=== PATIENT | male | born 1965 | race Hispanic/Latino ===

== ENCOUNTER 2018-07-12 17:05 | Inpatient (IN) | payer OTHER ==
[2018-07-12 18:50] LABS: BASO # 0.2 K/uL (0.0-0.2); EOS # 0.1 K/uL (0.0-0.7); EOS % 0.4 % (0.0-4.0); HEMOGLOBIN 17.3 g/dL (12.0-18.0); LYMPH # 3.1 K/uL (1.0-4.3); MEAN CELL VOLUME 88.3 fL (80.0-94.0); MEAN CORPUSCULAR HEMOGLOBIN 30.5 pg (27.0-31.0); MEAN CORPUSCULAR HGB CONC 34.5 g/dL (33.0-37.0); MEAN PLATELET VOLUME 9.1 fL (7.2-11.7); MONO # 0.7 K/uL (0.0-0.8); MONO % 4.4 % (0.0-10.0); NEUT # 10.9 K/uL (1.8-7.0); NEUT % 73.2 % (50.0-75.0); NRBC % 0.2 % (0.0-2.0); RBC 5.68 Mil/uL (4.40-5.90); RED CELL DISTRIBUTION WIDTH 13.3 % (11.5-14.5); WHITE BLOOD COUNT 14.9 K/uL (4.8-10.8)
[2018-07-12 19:17] LABS: SQUAMOUS EPITHIAL 1 /hpf (0-5); URINE BILIRUBIN NEGATIVE (NEGATIVE); URINE BLOOD NEGATIVE (NEGATIVE); URINE CLARITY Hazy (Clear); URINE COLOR Amber (YELLOW); URINE GLUCOSE (UA) NORMAL (Normal); URINE HYALINE CAST >20 /lpf (0-2); URINE LEUKOCYTE ESTERASE NEG Leu/uL (Negative); URINE PROTEIN 1+ mg/dL (NEGATIVE)
[2018-07-12 19:20] LABS: ALB/GLOB RATIO 1.2 (1.0-2.1); ALT/SGPT 86 U/L (21-72); AST/SGOT 65 U/L (17-59); BLOOD UREA NITROGEN 10 mg/dL (9-20); CALCIUM 9.7 mg/dl (8.6-10.4); GFR NON-AFRICAN AMERICAN > 60
[2018-07-12 19:33] LABS: BARBITURATES, UR NEGATIVE (NEGATIVE); PHENCYCLIDINE, UR NEGATIVE (NEGATIVE)
--- NOTE | 2018-07-12 19:56 | C.PDOC ---
History Of Present Illness 53 y/o male presents to the ED requesting detox from alcohol and heroin. Patient admits he last used today prior to arrival. Otherwise patient offers no physical complaints at this time. Denies any fever, chills, nausea, or vomiting. Time Seen by Provider: 07/12/18 19:23 Chief Complaint (Nursing): Substance Abuse History Per: Patient History/Exam Limitations: no limitations Onset/Duration Of Symptoms: Days Current Symptoms Are (Timing): Still Present Modifying Factor(s): Alcohol, Other (Heroin) Associated Symptoms: denies: Suicidal Thoughts, Suicidal Plan Involuntary Hold By: None Past Medical History Reviewed: Historical Data, Nursing Documentation, Vital Signs Vital Signs: Last Vital Signs Temp 98.9 F 07/12/18 17:10 Pulse 97 H 07/12/18 17:10 Resp 18 07/12/18 17:10 BP 127/82 07/12/18 17:10 Pulse Ox 98 07/12/18 17:10 - Medical History PMH: Depression Surgical History: No Surg Hx Family History: States: No Known Family Hx - Social History Hx Tobacco Use: Yes Hx Alcohol Use: Yes Hx Substance Use: Yes - Immunization History Hx Tetanus Toxoid Vaccination: No Hx Influenza Vaccination: No Hx Pneumococcal Vaccination: No Review Of Systems Constitutional: Negative for: Fever, Chills Gastrointestinal: Negative for: Nausea, Vomiting Musculoskeletal: Negative for: Other (tremors) Psych: Positive for: Other (substance abuse). Negative for: Suicidal ideation, Withdrawal Physical Exam - Physical Exam Appears: Non-toxic, No Acute Distress Skin: Warm, Dry Head: Normacephalic Eye(s): bilateral: Normal Inspection Oral Mucosa: Moist Neck: Trachea Midline, Supple Chest: Symmetrical Cardiovascular: Rhythm Regular Respiratory: No Rales, No Rhonchi, No Wheezing Gastrointestinal/Abdominal: Soft, No Tenderness, No Distention Extremity: Bilateral: Atraumatic, Normal Color And Temperature, Normal ROM Pulses: Left Dorsalis Pedis: Normal, Right Dorsalis Pedis: Normal Neurological/Psych: Oriented x3 Gait: Steady ED Course And Treatment - Laboratory Results Result Diagrams: 07/12/18 18:46 07/12/18 18:46 O2 Sat by Pulse Oximetry: 98 (RA) Pulse Ox Interpretation: Normal Progress Note: Blood work and urine sent for analysis. plastics factory worker will evaluate patient and discuss detox. Disposition Discussed With : Leo Redmond Comment: accepted the pt on his service and took over the care at 8:07PM Doctor Will See Patient In The: Hospital Counseled Patient/Family Regarding: Studies Performed, Diagnosis - Disposition Disposition: HOSPITALIZED Disposition Time: 19:00 Condition: FAIR Forms: [facility] (Pakistani) - Clinical Impression Clinical Impression: Alcohol abuse, Opioid use disorder - Scribe Statement The provider has reviewed the documentation as recorded by the Elva Vasquez Provider Attestation: All medical record entries made by the Elva were at my direction and personally dictated by me. I have reviewed the chart and agree that the record accurately reflects my personal performance of the history, physical exam, medical decision making, and the department course for this patient. I have also personally directed, reviewed, and agree with the discharge instructions and disposition. Decision To Admit - Pt Status Changed To: Hospital Disposition Of: Inpatient - Admit Certification Admit to Inpatient:: After my assessment, the patient will require hospitalization for at least two midnights. This is because of the severity of symptoms shown, intensity of services needed, and/or the medical risk in this patient being treated as an outpatient. - InPatient: Physician Admission Certification: I certify that this patient requires 2 or more midnights of care for the following reason:: After my assessment, the patient will require hospitalization for at least two midnights. This is because of the severity of symptoms shown, intensity of services needed, and/or the medical risk in this patient being treated as an outpatient. - . Bed Request Type: Detox Admitting Physician: Leo Redmond Patient Diagnosis: Alcohol abuse, Opioid use disorder
[2018-07-12 20:21] LABS: BENZODIAZEPINES, UR POSITIVE (NEGATIVE); OPIATES, UR POSITIVE (NEGATIVE)
--- NOTE | 2018-07-12 20:31 | PCM.BM ---
<Lacy Oliveros - Last Filed: 07/12/18 20:28> Treatment Plan Problems - Problems identified on initial assessmt potiential for autonomic instability related to alcohol withdrawal Date Initiated: 07/12/18 Time Initiated: 20:29 Assessment reference: NA Status: Active potiential for opiate withdrawal Date Initiated: 07/12/18 Time Initiated: 20:30 Assessment reference: NA Status: Active Treatment assets and liabiliti Patient Assests: ADL independent, cognitively intact Patient Liabilities: substance abuse, medical problems - Milieu Protocol Maintain good personal hygiene: daily Encourage regular showers, daily Remind patient to perform daily oral care, daily Assist patient to perform ADL's Maintain personal safety: every shift Educate patient to report safety concerns to staff, every shift Monitor environment for contraband/sharps Medication safety: Monitor for expected outcome, potential side effects: every shift, Assess barriers to learning: every shift, Assess readiness for medication education: every shift <Delia Corona - Last Filed: 07/13/18 14:04> - Diagnosis (1) Opioid use disorder Status: Acute Interventions: 07/13/18 14:04 * Assess 7x/week regarding severity of withdrawal * Educate regarding risks, benefits, side effects and alternatives of medications * Use Motivational Interviewing for abstinence * Use CBT for relapse prevention * Medication management for withdrawal symptoms * Encourage medication assisted treatment *
[2018-07-13] MEDS: Multiple Vitamins Tab PO SCH (09:19)
--- NOTE | 2018-07-13 14:04 | PCM.PSYCH ---
Initial Psychiatric Evaluation - Initial Psychiatric Evaluation Type of Admission: Voluntary Legal Status: Capacity Chief Complaint (in patient's own words): "Heroin" History of Present Illness and Precipitating Events: Patient is a 53-year-old white male, single with 3 children aged 8,17, and 21. He is on disability due to the stroke he had 2 years ago. He lives with his mother in [place]. Patient is here for detox from heroin. Patient states that he has been using 10 bags of heroin and cocaine per day by sniffing and benzodiazepine (Xanax) 2-4 mg per day in the last 3 years. He also admits smoking marijuana about 3x per month and smoking cigarettes 1ppd. He states that he drinks a couple of beers every day. Patient reports that he abused many others in the past as well, but he quit on his own and was clean about 19 years. He relapsed 3 years ago when he was going through a divorce. He reports overdosing about 4-5x in the past. He complains about tremors on his hands and pain in his body. Patient reports that he tried detox for the first time about a month ago in [facility]. He has never been to a rehabilitation before. Patient plans to utilize outpatient programs after leaving the detox. Psych hx: depression (diagnosed 5 years ago). Still very depressed but denies SI/SP. 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 Family hx: brother committed suicide for an unknown reason. Current Medications: Active Medications Generic Name Dose Route Start Last Admin Trade Name Freq PRN Reason Stop Dose Admin Al Hydrox/Mg Hydrox/Simethicone 30 ml 07/13/18 03:29 Maalox 30 Ml PO TID PRN Indigestion / Heartburn Aspirin 81 mg 07/13/18 12:00 07/13/18 12:52 Aspirin Chewable PO 81 mg DAILY COLLEEN Administration Chlordiazepoxide 25 mg 07/13/18 03:30 Librium PO Q4H PRN Alcohol Withdrawal Clonidine HCl 0.1 mg 07/13/18 03:29 Catapres PO Q8 PRN COWS Score More or Equal to 5 Clopidogrel Bisulfate 75 mg 07/13/18 12:00 07/13/18 12:53 Plavix PO 75 mg DAILY COLLEEN Administration Dicyclomine HCl 20 mg 07/13/18 03:32 Bentyl PO Q6 PRN Abdominal cramps Escitalopram Oxalate 10 mg 07/13/18 12:00 07/13/18 12:53 Lexapro PO 10 mg DAILY COLLEEN Administration Folic Acid 1 mg 07/13/18 10:00 07/13/18 09:19 Folic Acid PO 1 mg DAILY COLLEEN Administration Gabapentin 400 mg 07/13/18 10:00 07/13/18 09:19 Neurontin PO 400 mg TID COLLEEN Administration Hydroxyzine HCl 25 mg 07/12/18 21:22 Atarax PO Q8 PRN Anxiety Ibuprofen 400 mg 07/13/18 03:32 Motrin Tab PO Q6 PRN Pain, moderate (4-7) Loperamide HCl 2 mg 07/13/18 03:29 Imodium PO Q8 PRN Diarrhea Methadone HCl 20 mg 07/14/18 10:00 Methadone PO 07/18/18 09:59 Q24H COLLEEN Taper Mirtazapine 15 mg 07/13/18 22:00 Remeron PO HS COLLEEN Multivitamins 1 tab 07/13/18 10:00 07/13/18 09:19 Hexavitamin PO 1 tab DAILY COLLEEN Administration Nicotine 1 patch 07/13/18 10:00 07/13/18 09:48 Nicoderm Cq TD 1 patch DAILY COLLEEN Administration Ondansetron HCl 4 mg 07/13/18 03:29 Zofran Tab PO Q8 PRN Nausea/Vomiting Oxcarbazepine 150 mg 07/13/18 12:00 07/13/18 12:52 Trileptal PO 150 mg BID COLLEEN Administration Rosuvastatin Calcium 10 mg 07/13/18 22:00 Crestor PO HS COLLEEN Thiamine HCl 100 mg 07/13/18 10:00 07/13/18 09:19 Vitamin B1 Tab PO 100 mg DAILY COLLEEN Administration Trazodone HCl 50 mg 07/12/18 21:21 07/12/18 22:58 Desyrel PO 50 mg HS PRN Administration Insomnia Past Psychiatric History - Past Psychiatric History Previous Treatment History: Intensive Outpatient Pertinent Medical Hx (Current Medical&Sleep Prob, Allergies): Allergies Allergy/AdvReac Type Severity Reaction Status Date / Time No Known Allergies Allergy Verified 07/12/18 17:10 Review of Systems - Neurological Neurological: Tremor - Psychiatric Psychiatric: Abnormal Sleep Pattern, Anhedonia, Anxiety, Behavioral Changes, Change in Appetite, Depression, Difficulty Concentrating, Irritability. absent: Hallucinations, Homicidal Ideation, Paranoia, Suicidal Ideation Mental Status Examination - Personal Presentation Personal Presentation: Looks stated age - Affect Affect: Constricted - Motor Activity Motor Activity: Calm - Reliability in Providing Information Reliability in Providing Information: Good - Speech Speech: Organized - Mood Mood: Depressed, Anxious - Formal Thought Process Formal Thought Process: No Impairment - Cognitive Functions Orientation: Person, Place, Situation, Time Sensorium: Alert Attention/Concentration: Attentive Estimate of Intelligence: Average Judgement: Intact, as evidence by: Insight regarding need for hospitalization Memory: Recent intact, as evidence by: Ability to recall events of the day, Remote intact, as evidenced by: Abilit to recall sig. 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 Attend groups and activities Supportive therapy and psychoeducation MA for abstinence CBT for relapse prevention Encourage MAT Refer to rehab or IOP, and self-help groups Teach healthy lifestyle methods, i.e. diet, exercise, meditation Smoking cessation with MA Nicotine patch if needed 34 min Projected ELOS: 5 days Prognosis: good w treatment - Smoking Cessation Smoking Cessation Initiated: Yes
[2018-07-14] MEDS: Multiple Vitamins Tab PO SCH (09:54)
--- NOTE | 2018-07-14 14:27 | PCM.PYCHPN ---
Psychiatric Progress Note - Psychiatric Progress Note Patient seen today, length of contact: 19 min Patient Chief Complaint: "I am not well" Problems Identified/Issues Discussed: The pt is seen, chart reviewed, case discussed with staff. The pt is compliant with medications and reports no side-effects. Symptoms are improving but needs more time to stabilize. He had lots of breakthru sxs and anxiety He couldn't sleep all night and got agitated at the end - He is warned against being disrespectful towards stff. Ativan and seroquel added Support given, psycho-education provided. Medication Change: Yes (meds adjusted) Medical Record Reviewed: Yes Mental Status Examination - Cognitive Function Orientation: Person, Place, Situation, Time Memory: Impaired Attention: Poor Concentration: Poor Association: Loose Fund of Knowledge: Poor - Mood Mood: Depressed, Anxious - Affect Affect: Constricted - Speech Speech: Appropriate - Formal Thought Process Formal Thought Process: No Impairment - Suicidal Ideation Suicidal Ideation: No - Homicidal Ideation Homicidal Ideation: No Goal/Treatment Plan - Goal/Treatment Plan Need for Continued Stay: Discharge may exacerbated symptoms, Severe functional impairment Progress Toward Problem(s) and Goals/Treatment Plan: Taper with Librium and Methadone Gabapentin for augmentation Lexapro for depression Seroquel for insomnia and agitation As needed medications All risks, benefits and alternatives of the meds discussed, and the pt agreed and understood. Attend groups and activities Supportive therapy and psychoeducation HI for abstinence CBT for relapse prevention Encourage MAT Refer to rehab or IOP, and self-help groups Teach healthy lifestyle methods, i.e. diet, exercise, meditation Smoking cessation with HI Nicotine patch if needed
[2018-07-15] MEDS: Multiple Vitamins Tab PO SCH (09:06)
[2018-07-15] MEDS: Aluminum Hydroxide/Magnesium Hydroxide Susp (30 mL) PO PRN (11:33)
--- NOTE | 2018-07-15 18:00 | PCM.PYCHPN ---
Psychiatric Progress Note - Psychiatric Progress Note Patient seen today, length of contact: 15 minutes Patient Chief Complaint: Medications were helping me. I'm feeling better with treatment. Problems Identified/Issues Discussed: Patient seen, chart reviewed, case discussed with the staff. Issues related to illness and treatment were discussed with the patient and staff. Reported compliant with treatment with no adverse affects. Tolerating treatment very well. Patient reported feeling better with the treatment. Still needs more time for stabilization and completion of his detox. Calm and cooperative. Awake, alert and oriented 3. No psychomotor activity, good eye contact, memory intact. Aftercare discussed with the patient. Denied any delusions, auditory or visual hallucinations, suicidal ideations or homicidal ideations at the time of evaluation. Medical Problems: Hypertension Diagnostic Results: Reviewed DSM 5 Symptoms Update: Improving with treatment Medication Change: No Medical Record Reviewed: Yes Mental Status Examination - Cognitive Function Orientation: Person, Place, Situation, Time Memory: Intact Attention: WNL Concentration: WNL Association: WNL Fund of Knowledge: WN Decription of patient's judgement and insights: Good - Mood Mood: Anxious - Affect Affect: Other - Speech Speech: Appropriate - Formal Thought Process Formal Thought Process: No Impairment Psychotic Thoughts and Behaviors: None - Suicidal Ideation Suicidal Ideation: No - Homicidal Ideation Homicidal Ideation: No Goal/Treatment Plan - Goal/Treatment Plan Need for Continued Stay: Remain at risks for inpatient hospitalization, Discharge may exacerbated symptoms, Severe functional impairment Progress Toward Problem(s) and Goals/Treatment Plan: Patient/staff education. Supportive therapy. CBT for relapse prevention. VT for abstinence. Continue treatment as before. Patient wants to go to NA meetings and also wants to attend IOP. Will speak with the social workers to find a program Estimated Date of D/C: 07/17/18 - Smoking Cessation Smoking Cessation Initiated: Yes
[2018-07-16] MEDS: Multiple Vitamins Tab PO SCH (09:12)
[2018-07-16 16:42] VITALS: RESP 18
[2018-07-17] MEDS: Aluminum Hydroxide/Magnesium Hydroxide Susp (30 mL) PO PRN (07:22)
[2018-07-17] MEDS: Multiple Vitamins Tab PO SCH (09:07)
[2018-07-17 10:03] VITALS: BP 110/80; PULSE 83; TEMP 97.6; O2SAT 99
== END 2018-07-17 10:30 | disposition home or self-care (01) | DRG 744 ==
LOC: C.ER 17:05 → C.9E 20:07 → C.7D 20:24
PROC: HZ2ZZZZ Detoxification Services for Substance Abuse Treatment (ICD-10-PCS; principal; 2018-07-12)
PROC: HZ80ZZZ Medication Management for Substance Abuse Treatment, Nicotine Replacement (ICD-10-PCS; 2018-07-12)
PROC: GZ3ZZZZ Medication Management (ICD-10-PCS; 2018-07-12)
PROC: HZ46ZZZ Group Counseling for Substance Abuse Treatment, Psychoeducation (ICD-10-PCS; 2018-07-12)
PROC: GZHZZZZ Group Psychotherapy (ICD-10-PCS; 2018-07-12)
PROC: HZ46ZZZ Group Counseling for Substance Abuse Treatment, Psychoeducation (ICD-10-PCS; 2018-07-12)
PROC: GZ56ZZZ Individual Psychotherapy, Supportive (ICD-10-PCS; 2018-07-12)
DX: F11.23 Opioid dependence with withdrawal (principal); F33.2 Major depressive disorder, recurrent severe without psychotic features; F10.10 Alcohol abuse, uncomplicated; F14.90 Cocaine use, unspecified, uncomplicated; F12.90 Cannabis use, unspecified, uncomplicated; F13.90 Sedative, hypnotic, or anxiolytic use, unspecified, uncomplicated; F17.210 Nicotine dependence, cigarettes, uncomplicated; F41.9 Anxiety disorder, unspecified; G47.00 Insomnia, unspecified; I10 Essential (primary) hypertension; Z86.73 Personal history of transient ischemic attack (TIA), and cerebral infarction without residual deficits

== ENCOUNTER 2018-11-07 19:11 | Inpatient (IN) | payer OTHER ==
[2018-11-07 20:18] LABS: BASO # 0.1 K/uL (0.0-0.2); BASO % 0.9 % (0.0-2.0); EOS # 0.2 K/uL (0.0-0.7); EOS % 1.6 % (0.0-4.0); HEMOGLOBIN 14.5 g/dL (12.0-18.0); LYMPH # 3.3 K/uL (1.0-4.3); LYMPH % 31.3 % (20.0-40.0); MEAN CELL VOLUME 89.8 fL (80.0-94.0); MEAN CORPUSCULAR HEMOGLOBIN 30.4 pg (27.0-31.0); MEAN CORPUSCULAR HGB CONC 33.9 g/dL (33.0-37.0); MEAN PLATELET VOLUME 8.5 fL (7.2-11.7); MONO # 0.6 K/uL (0.0-0.8); MONO % 5.8 % (0.0-10.0); NEUT # 6.4 K/uL (1.8-7.0); NEUT % 60.4 % (50.0-75.0); NRBC % 0.1 % (0.0-2.0); RBC 4.77 Mil/uL (4.40-5.90); RED CELL DISTRIBUTION WIDTH 13.2 % (11.5-14.5); WHITE BLOOD COUNT 10.5 K/uL (4.8-10.8)
[2018-11-07 20:23] LABS: URINE BACTERIA RARE (<OCC); URINE BILIRUBIN NEGATIVE (NEGATIVE); URINE BLOOD NEGATIVE (NEGATIVE); URINE CLARITY Clear (Clear); URINE COLOR Yellow (YELLOW); URINE GLUCOSE (UA) NORMAL (Normal); URINE LEUKOCYTE ESTERASE NEG Leu/uL (Negative); URINE PROTEIN NEGATIVE (NEGATIVE); URINE UROBILINOGEN NORMAL mg/dL (0.2-1.0)
[2018-11-07 20:34] LABS: ALB/GLOB RATIO 1.2 (1.0-2.1); ALBUMIN 4.5 g/dL (3.5-5.0); ALT/SGPT 119 U/L (21-72); AST/SGOT 178 U/L (17-59); BLOOD UREA NITROGEN 13 mg/dL (9-20); CALCIUM 8.8 mg/dl (8.6-10.4); GFR NON-AFRICAN AMERICAN > 60
[2018-11-07 20:49] LABS: BARBITURATES, UR NEGATIVE (NEGATIVE); OPIATES, UR NEGATIVE (NEGATIVE); PHENCYCLIDINE, UR NEGATIVE (NEGATIVE)
--- NOTE | 2018-11-07 21:02 | C.PDOC ---
History Of Present Illness 53 year old male with PMHx of HTN and CVA presents to the ED requesting detox for polysubstance abuse. Patient reports his last use was today RHEOLOGIST. Patient denies SI/HI, hallucinations, other medical complaints. <Dafne Gomes - Last Filed: 11/07/18 22:33> History Per: Patient History/Exam Limitations: intoxication Onset/Duration Of Symptoms: Hrs Current Symptoms Are (Timing): Still Present Suicide/Self Injury Attempted (Context): None Modifying Factor(s): Other Associated Symptoms: denies: Depression, Suicidal Thoughts, Suicidal Plan Recent travel outside of the [place]: No Additional History Per: Patient <Dafne Gomes - Last Filed: 11/07/18 22:33> <Krunal Sheikh - Last Filed: 11/08/18 00:33> Time Seen by Provider: 11/07/18 19:37 Chief Complaint (Nursing): Substance Abuse Past Medical History Reviewed: Historical Data, Nursing Documentation, Vital Signs Vital Signs: Last Vital Signs Temp 97.9 F 11/07/18 19:22 Pulse 86 11/07/18 19:22 Resp 22 11/07/18 19:22 BP 133/87 11/07/18 19:22 Pulse Ox 96 11/07/18 19:22 - Medical History PMH: Anxiety (paranoid), CVA, Depression Denies: Diabetes, Hepatitis, HIV, HTN, Seizures, Sexually Transmitted Disease Other Surgeries: hand surgery 2/2 crush injury - [facility] DETOXIFICATION SERVICES FOR SUBSTANCE ABUSE TREATMENT (07/12/18) GROUP CUSTOMER SERVICES MANAGER FOR SUBSTANCE ABUSE TREATMENT, PSYCHOEDUCATION (07/12/18) GROUP PSYCHOTHERAPY (07/12/18) INDIVIDUAL PSYCHOTHERAPY, SUPPORTIVE (07/12/18) MEDICATION MANAGEMENT (07/12/18) MEDS MGMT FOR SUBSTANCE ABUSE TREATMENT, NICOTINE REPLACE (07/12/18) Family History: States: Unknown Family Hx - Social History Hx Tobacco Use: Yes Hx Alcohol Use: Yes Hx Substance Use: Yes - Immunization History Hx Tetanus Toxoid Vaccination: No Hx Influenza Vaccination: No Hx Pneumococcal Vaccination: No <Dafne Gomes - Last Filed: 11/07/18 22:33> Vital Signs: Last Vital Signs Temp 98.1 F 11/07/18 22:43 Pulse 74 11/07/18 22:43 Resp 20 02/03/19 22:43 BP 128/70 11/07/18 22:43 Pulse Ox 98 11/07/18 22:43 - [facility] DETOXIFICATION SERVICES FOR SUBSTANCE ABUSE TREATMENT (07/12/18) GROUP CUSTOMER SERVICES MANAGER FOR SUBSTANCE ABUSE TREATMENT, PSYCHOEDUCATION (07/12/18) GROUP PSYCHOTHERAPY (07/12/18) INDIVIDUAL PSYCHOTHERAPY, SUPPORTIVE (07/12/18) MEDICATION MANAGEMENT (07/12/18) MEDS MGMT FOR SUBSTANCE ABUSE TREATMENT, NICOTINE REPLACE (07/12/18) <Krunal Sheikh - Last Filed: 11/08/18 00:33> Review Of Systems Constitutional: Negative for: Fever, Chills Cardiovascular: Negative for: Chest Pain, Palpitations Respiratory: Negative for: Cough, Shortness of Breath Gastrointestinal: Negative for: Nausea, Vomiting, Abdominal Pain Psych: Negative for: Depression, Suicidal ideation <Dafne Gomes - Last Filed: 11/07/18 22:33> Physical Exam - Physical Exam Appears: Non-toxic, No Acute Distress Skin: Normal Color, Warm, Dry Head: Atraumatic, Normacephalic Eye(s): bilateral: Normal Inspection Neck: Normal ROM, Supple Chest: Symmetrical Cardiovascular: Rhythm Regular Respiratory: Normal Breath Sounds, No Rales, No Rhonchi, No Wheezing Gastrointestinal/Abdominal: Soft, No Tenderness, No Guarding, No Rebound Extremity: Normal ROM, Other (right hand thumb only secondary to childhood trauma) Neurological/Psych: Oriented x3, Normal Speech, Normal Cognition Gait: Steady <Dafne Gomes - Last Filed: 11/07/18 22:33> ED Course And Treatment - Laboratory Results Result Diagrams: 11/07/18 20:10 11/07/18 20:10 Lab Results: Total Bilirubin 0.7 mg/dL (0.2-1.3) 11/07/18 20:10 AST 178 U/L (17-59) H D 11/07/18 20:10 ALT 119 U/L (21-72) H D 11/07/18 20:10 Alkaline Phosphatase 72 U/L (38-126) 11/07/18 20:10 Total Protein 8.1 g/dL (6.3-8.3) 11/07/18 20:10 Albumin 4.5 g/dL (3.5-5.0) 11/07/18 20:10 Globulin 3.7 gm/dL (2.2-3.9) 11/07/18 20:10 Albumin/Globulin Ratio 1.2 (1.0-2.1) 11/07/18 20:10 Urine Color Yellow (YELLOW) 11/07/18 20:10 Urine Clarity Clear (Clear) 11/07/18 20:10 Urine pH 5.0 (5.0-8.0) 11/07/18 20:10 Ur Specific [place] 1.019 (1.003-1.030) 11/07/18 20:10 Urine Protein Negative mg/dL (NEGATIVE) 11/07/18 20:10 Urine Glucose (UA) Normal mg/dL (Normal) 11/07/18 20:10 Urine Ketones Negative mg/dL (NEGATIVE) 11/07/18 20:10 Urine Blood Negative (NEGATIVE) 11/07/18 20:10 Urine Nitrate Negative (NEGATIVE) 11/07/18 20:10 Urine Bilirubin Negative (NEGATIVE) 11/07/18 20:10 Urine Urobilinogen Normal mg/dL (0.2-1.0) 11/07/18 20:10 Ur Leukocyte Esterase Neg [place]/uL (Negative) 11/07/18 20:10 Urine WBC (Auto) < 1 /hpf (0-5) 11/07/18 20:10 Urine RBC (Auto) 1 /hpf (0-3) 11/07/18 20:10 Urine Bacteria Rare (<OCC) 11/07/18 20:10 O2 Sat by Pulse Oximetry: 96 (ON RA) Pulse Ox Interpretation: Normal <Dafne Gomes - Last Filed: 11/07/18 22:33> - Laboratory Results Result Diagrams: 11/07/18 20:10 11/07/18 20:10 Lab Results: Total Bilirubin 0.7 mg/dL (0.2-1.3) 11/07/18 20:10 AST 178 U/L (17-59) H D 11/07/18 20:10 ALT 119 U/L (21-72) H D 11/07/18 20:10 Alkaline Phosphatase 72 U/L (38-126) 11/07/18 20:10 Total Protein 8.1 g/dL (6.3-8.3) 11/07/18 20:10 Albumin 4.5 g/dL (3.5-5.0) 11/07/18 20:10 Globulin 3.7 gm/dL (2.2-3.9) 11/07/18 20:10 Albumin/Globulin Ratio 1.2 (1.0-2.1) 11/07/18 20:10 Urine Color Yellow (YELLOW) 11/07/18 20:10 Urine Clarity Clear (Clear) 11/07/18 20:10 Urine pH 5.0 (5.0-8.0) 11/07/18 20:10 Ur Specific [place] 1.019 (1.003-1.030) 11/07/18 20:10 Urine Protein Negative mg/dL (NEGATIVE) 11/07/18 20:10 Urine Glucose (UA) Normal mg/dL (Normal) 11/07/18 20:10 Urine Ketones Negative mg/dL (NEGATIVE) 11/07/18 20:10 Urine Blood Negative (NEGATIVE) 11/07/18 20:10 Urine Nitrate Negative (NEGATIVE) 11/07/18 20:10 Urine Bilirubin Negative (NEGATIVE) 11/07/18 20:10 Urine Urobilinogen Normal mg/dL (0.2-1.0) 11/07/18 20:10 Ur Leukocyte Esterase Neg Collette/uL (Negative) 11/07/18 20:10 Urine WBC (Auto) < 1 /hpf (0-5) 11/07/18 20:10 Urine RBC (Auto) 1 /hpf (0-3) 11/07/18 20:10 Urine Bacteria Rare (<OCC) 11/07/18 20:10 <Krunal Sheikh - Last Filed: 11/08/18 00:33> Medical Decision Making Medical Decision Making: labs reviewed; pt with glucose 65, eating sandwich and drinking juice in ed. 2230 pt resting comfortably. pt is medically cleared for detox admission, awaits crisis evaluation. s/o to DR Sheikh for final dispo. <Dafne Gomes - Last Filed: 11/07/18 22:33> Medical Decision Making: signed over, @ 2230, pending Detox adm pt seen and examined, sleeping, easily arousable, covered with a clean sheet 0000: d/w Crisis, pending Detox adm 0030: signed over to anisa CLARK pending Detox Adm <Krunal Sheikh - Last Filed: 11/08/18 00:33> Disposition - Disposition Disposition Time: 22:31 <Dafne Gomes - Last Filed: 11/07/18 22:33> <Krunal Sheikh - Last Filed: 11/08/18 00:33> - Disposition Forms: [employer] (Kenyan) - Clinical Impression Clinical Impression: Polysubstance (including opioids) dependence, daily use - PA / PETS SALESPERSON / Resident Statement / has reviewed & agrees with the documentation as recorded. - Scribe Statement The provider has reviewed the documentation as recorded by the Scribe Alen Keith All medical record entries made by the Scribe were at my direction and personally dictated by me. I have reviewed the chart and agree that the record accurately reflects my personal performance of the history, physical exam, medical decision making, and the department course for this patient. I have also personally directed, reviewed, and agree with the discharge instructions and disposition. <Dafne Gomes - Last Filed: 11/07/18 22:33> Physician Patient Turnover Patient Signed Over To: Genaro Bassett DO Handoff Comments: pending Detox Adm <Krunal Sheikh - Last Filed: 11/08/18 00:33>
[2018-11-07 21:08] LABS: BENZODIAZEPINES, UR POSITIVE (NEGATIVE)
--- NOTE | 2018-11-08 09:31 | PCM.BM ---
<Raeann Quintanilla - Last Filed: 11/08/18 09:29> Treatment Plan Problems - Problems identified on initial assessmt potential for alcohol withdrawal Date Initiated: 11/08/18 Time Initiated: 09:30 Assessment reference: NA Status: Active Problem 2 Date Initiated: 11/08/18 Time Initiated: 09:30 Assessment reference: NA Status: Active Treatment assets and liabiliti Patient Assests: ADL independent, cognitively intact - Milieu Protocol Maintain good personal hygiene: daily Encourage regular showers, daily Remind patient to perform daily oral care, daily Assist patient to perform ADL's Conduct patient checks and document Observation sheet: Q15 minutes Maintain personal safety: every shift Educate patient to report safety concerns to staff, every shift Monitor environment for contraband/sharps Medication safety: Monitor for expected outcome, potential side effects: every shift, Assess barriers to learning: every shift, Assess readiness for medication education: every shift <Delia Corona - Last Filed: 11/08/18 13:44> - Diagnosis (1) Alcohol use disorder, severe, dependence Status: Acute Interventions: 11/08/18 13:44 * Assess 7x/week regarding severity of withdrawal * Educate regarding risks, benefits, side effects and alternatives of medications * Use Motivational Interviewing for abstinence * Use CBT for relapse prevention * Medication management for withdrawal symptoms * Encourage medication assisted treatment * <Michelle Cueto - Last Filed: 11/11/18 13:17> Treatment Plan Problems - Problems identified on initial assessmt potential for alcohol withdrawal Date Initiated: 11/08/18 Time Initiated: 09:30 Assessment reference: NA Status: Active Problem 2 Date Initiated: 11/08/18 Time Initiated: 09:30 Assessment reference: NA Status: Active Family Contact Family involvement: Renee/SO not involved - Goals for Treatment Patient goals for treatment: Complete detox and transition to MAT. Discharge/Continuing Care - Education Needs Education Needs: Patient Medication, Patient Diagnosis/Disease Process, Patient Coping Skills, Patient Anger Management skills, Patient Placement options, Patient Community resources - Discharge Discharge Criteria: No longer exhibiting s/s of withdrawal, Reduction of target symptoms Discharge to:: Home, With Family - Treatment Team Participation Patient/Family/SO Statement: 11/11/18 13:17 "I wanna go back to the [facility]..." Discussed with Family/SO: No Was Patient/Family/SO present at Treatment Team Meeting: Yes
[2018-11-08] MEDS ORDERED: Aluminum Hydroxide/Magnesium Hydroxide Susp (30 mL) PO PRN (09:34)
--- NOTE | 2018-11-08 09:46 | PCM.PSYCH ---
Initial Psychiatric Evaluation - Initial Psychiatric Evaluation Type of Admission: Voluntary Legal Status: Capacity Chief Complaint (in patient's own words): "I had enough, I want to be clean" History of Present Illness and Precipitating Events: Patient is a 53 -year-old, male who is single, unemployed, and living with his mother in [place], [place]. He has 4 children, ages 25, 22, 16, and 8. His 16 and 8 year old kids are under supervision of their mother. He presents for alcohol detox. Patient reports drinking 1 pint of anything, daily. He started drinking when he was 23 years old. With his longest sobriety lasting 18 years that he attributes to being in a strong relationship. Patient does not have a history of DTs or seizures but states that he has a history of 2-3 blackouts in his life. He states that after stopping heroin his alcohol intake increased. Patient is currently on 90 mg of methadone after detox for heroin at [facility] 5 months ago. He states that he gets his methadone from [facility] in [place], [place]. He states that he used to use 6 bags of heroin, intranasally and intravascularly, daily. He first started using heroin when he was 50 years old. Patient does not have a history of heroin overdoses. Patient also reports taking 2 of the 2 mg pills of Xanax, 2-3 times a week. He states that he has been taking pills for a long time. This is his 3rd time in detox. He has been to [facility] in the past and [facility] as well. Patient denies any suicidal or homicidal ideation, hallucinations, and paranoia. Past Psychiatric History: Bipolar, depression, anxiety. No hospitalizations in the past. Family Psych History: none PMHx: Hep. C (does not taking medication for it, in the process of getting it approved by the insurance) Meds: Patient does not remember the name of his psych meds but states that he is compliant with them Current Medications: Active Medications Generic Name Dose Route Start Last Admin Trade Name Freq PRN Reason Stop Dose Admin Al Hydrox/Mg Hydrox/Simethicone 30 ml 11/08/18 09:34 Maalox 30 Ml PO TID PRN Indigestion / Heartburn Clonidine HCl 0.1 mg 11/08/18 09:31 Catapres PO Q4 PRN COWS Score More or Equal to 5 Hydroxyzine HCl 25 mg 02/04/19 09:32 Atarax PO Q4H PRN Anxiety Ibuprofen 600 mg 11/08/18 09:32 Motrin Tab PO Q6H PRN Pain, moderate (4-7) Loperamide HCl 2 mg 11/08/18 09:31 Imodium PO Q8 PRN Diarrhea Methadone HCl 10 mg 11/08/18 10:00 Methadone PO DAILY [facility] Methadone HCl 80 mg 11/08/18 10:00 Methadose PO DAILY [facility] Ondansetron HCl 4 mg 11/08/18 09:31 Zofran Tab PO Q8 PRN Nausea/Vomiting Pneumococcal Polyvalent Vaccine 0.5 ml 11/10/18 10:45 Pneumovax 23 Vaccine SC 11/10/18 10:46 .ONCE ONE Trazodone HCl 50 mg 11/08/18 22:00 Desyrel PO HS COLLEEN Past Psychiatric History - Past Psychiatric History Previous Treatment History: Intensive Outpatient Pertinent Medical Hx (Current Medical&Sleep Prob, Allergies): Allergies Allergy/AdvReac Type Severity Reaction Status Date / Time No Known Allergies Allergy Verified 11/07/18 19:27 No Known Home Med 11/07/18 Review of Systems - Psychiatric Psychiatric: Abnormal Sleep Pattern, Anxiety, Behavioral Changes, Confusion, Depression, Difficulty Concentrating, Irritability. absent: Hallucinations, Homicidal Ideation, Suicidal Ideation, Visual Hallucinations Mental Status Examination - Personal Presentation Personal Presentation: Looks stated age - Affect Affect: Constricted - Motor Activity Motor Activity: Psychomotor Agitation - Reliability in Providing Information Reliability in Providing Information: Good - Speech Speech: Disorganized - Mood Mood: Depressed, Anxious - Formal Thought Process Formal Thought Process: No Impairment - Obsessions/Compulsions Obsessions: No Compulsions: No - Cognitive Functions Orientation: Person, Place, Situation, Time Sensorium: Alert Attention/Concentration: Easily distracted Abstract Thinking: [place] Estimate of Intelligence: Average Judgement: Intact, as evidence by: Insight regarding need for hospitalization Memory: Recent intact, as evidence by: Ability to recall events of the day, Remote intact, as evidenced by: Abilit to recall sig. life events - Risk Risk: Withdrawal, Diminished functioning - Strength & Assets Inventory Strength & Assets Inventory: Family support, Cooperative - Limitations Limitations: Other DSM 5 DX - DSM 5 DSM 5 Diagnosis: Alcohol Withdrawal Opioid use disorder- severe, on maintenance Alcohol use disorder- severe Sedative, hypnotic or anxiolytic use disorder, severe KENDALL Depressive d/o - unspecified - Recommended/Plan of Treatment Treatment Recommendations and Plan of Treatment: Taper with Ativan Continue Methadone regimen Gabapentin for augmentation if needed As needed medications All risks, benefits and alternatives of the meds discussed, and the pt agreed and understood. Attend groups and activities Supportive therapy and psychoeducation WI for abstinence CBT for relapse prevention Encourage MAT Refer to rehab or IOP, and self-help groups Teach healthy lifestyle methods, i.e. diet, exercise, meditation Smoking cessation with WI Nicotine patch if needed 34 min Projected ELOS: 4-5 days Prognosis: good with treatment
[2018-11-08] MEDS: Methadone 40 mg Tab PO SCH (10:20)
[2018-11-08] MEDS: Multiple Vitamins Tab PO SCH (10:22)
[2018-11-09] MEDS: Multiple Vitamins Tab PO SCH (09:39)
[2018-11-09] MEDS: Methadone 40 mg Tab PO SCH (09:40)
--- NOTE | 2018-11-09 11:35 | PCM.PYCHPN ---
Psychiatric Progress Note - Psychiatric Progress Note Patient seen today, length of contact: 16 min Patient Chief Complaint: "I apologize for my behavior" Problems Identified/Issues Discussed: The pt is seen, chart reviewed, case discussed with staff. The pt is compliant with medications and reports no side-effects. Symptoms are improving but needs more time to stabilize. Less irate, more apologetic today Pt attends groups and activities. Support given, psycho-education provided. After care discussed. Medication Change: Yes (detox changes daily) Medical Record Reviewed: Yes Mental Status Examination - Cognitive Function Orientation: Person, Place, Situation, Time Memory: Intact Attention: WNL Concentration: Poor Association: WNL Fund of Knowledge: WNL - Mood Mood: Depressed, Anxious - Affect Affect: Constricted - Speech Speech: Appropriate - Formal Thought Process Formal Thought Process: No Impairment - Suicidal Ideation Suicidal Ideation: No - Homicidal Ideation Homicidal Ideation: No Goal/Treatment Plan - Goal/Treatment Plan Need for Continued Stay: Discharge may exacerbated symptoms, Severe functional impairment Progress Toward Problem(s) and Goals/Treatment Plan: Taper with Ativan Continue Methadone regimen Gabapentin for augmentation if needed As needed medications All risks, benefits and alternatives of the meds discussed, and the pt agreed and understood. Attend groups and activities Supportive therapy and psychoeducation MD for abstinence CBT for relapse prevention Encourage MAT Refer to rehab or IOP, and self-help groups Teach healthy lifestyle methods, i.e. diet, exercise, meditation Smoking cessation with MD Nicotine patch if needed
--- NOTE | 2018-11-10 01:33 | PCM.BM ---
Treatment Plan Problems - Problems identified on initial assessmt Defensive Coping Date Initiated: 11/10/18 Time Initiated: 01:32 Assessment reference: NA Status: Active Anxiety r/t substance use Date Initiated: 11/10/18 Time Initiated: 01:31 Assessment reference: NA Status: Active Knowledge Deficit; Alcohol use Date Initiated: 11/10/18 Time Initiated: 01:33 Status: Active Treatment assets and liabiliti Patient Assests: ADL independent, cognitively intact - Milieu Protocol Maintain good personal hygiene: daily Encourage regular showers, daily Remind patient to perform daily oral care, daily Assist patient to perform ADL's Conduct patient checks and document Observation sheet: Q15 minutes Maintain personal safety: every shift Educate patient to report safety concerns to staff, every shift Monitor environment for contraband/sharps Medication safety: Monitor for expected outcome, potential side effects: every shift, Assess barriers to learning: every shift, Assess readiness for medication education: every shift Milieu Narrative: Taper with Ativan Continue Methadone regimen Gabapentin for augmentation if needed As needed medications All risks, benefits and alternatives of the meds discussed, and the pt agreed and understood. Attend groups and activities Supportive therapy and psychoeducation AL for abstinence CBT for relapse prevention Encourage MAT Refer to rehab or IOP, and self-help groups Teach healthy lifestyle methods, i.e. diet, exercise, meditation Smoking cessation with AL Nicotine patch if needed Discharge/Continuing Care - Treatment Team Participation Patient/Family/SO Statement: Taper with Ativan Continue Methadone regimen Gabapentin for augmentation if needed As needed medications All risks, benefits and alternatives of the meds discussed, and the pt agreed and understood. Attend groups and activities Supportive therapy and psychoeducation AL for abstinence CBT for relapse prevention Encourage MAT Refer to rehab or IOP, and self-help groups Teach healthy lifestyle methods, i.e. diet, exercise, meditation Smoking cessation with AL Nicotine patch if needed
[2018-11-10] MEDS: Methadone 40 mg Tab PO SCH (09:46)
[2018-11-10] MEDS: Multiple Vitamins Tab PO SCH (09:46)
[2018-11-10] MEDS ORDERED: Pneumococcal 23-Valent Vaccine SC ONE (10:45)
--- NOTE | 2018-11-10 15:50 | PCM.PYCHPN ---
Psychiatric Progress Note - Psychiatric Progress Note Patient seen today, length of contact: 16 min Patient Chief Complaint: "I am doing well" Problems Identified/Issues Discussed: The pt is seen, chart reviewed, case discussed with staff. Support and psychoeducation given, CBT and WI used briefly No new symptoms reported, improving slowly and needs more time No SEs from medications, risks discussed. After care discussed Medication Change: Yes (detox changes daily) Medical Record Reviewed: Yes Mental Status Examination - Cognitive Function Orientation: Person, Place, Situation, Time Memory: Intact Attention: WNL Concentration: Poor Association: WNL Fund of Knowledge: WNL - Mood Mood: Depressed, Anxious - Affect Affect: Constricted - Speech Speech: Appropriate - Formal Thought Process Formal Thought Process: No Impairment - Suicidal Ideation Suicidal Ideation: No - Homicidal Ideation Homicidal Ideation: No Goal/Treatment Plan - Goal/Treatment Plan Need for Continued Stay: Discharge may exacerbated symptoms, Severe functional impairment Progress Toward Problem(s) and Goals/Treatment Plan: Taper with Ativan Continue Methadone regimen Gabapentin for augmentation if needed As needed medications All risks, benefits and alternatives of the meds discussed, and the pt agreed and understood. Attend groups and activities Supportive therapy and psychoeducation WI for abstinence CBT for relapse prevention Encourage MAT Refer to rehab or IOP, and self-help groups Teach healthy lifestyle methods, i.e. diet, exercise, meditation Smoking cessation with WI Nicotine patch if needed Estimated Date of D/C: 11/12/18
[2018-11-11] MEDS: Methadone 40 mg Tab PO SCH (09:28)
[2018-11-11] MEDS: Multiple Vitamins Tab PO SCH (09:29)
[2018-11-11 10:38] VITALS: RESP 18
--- NOTE | 2018-11-11 13:01 | PCM.PYCHPN ---
Psychiatric Progress Note - Psychiatric Progress Note Patient seen today, length of contact: 15 min Patient Chief Complaint: "No problem" Problems Identified/Issues Discussed: The pt is seen, chart reviewed, case discussed with staff. The pt is compliant with medications and reports no side-effects. Symptoms are improving but needs more time to stabilize. He acts strangely sometimes and he is warned about that Pt attends groups and activities. Support given, psycho-education provided. After care discussed. Medication Change: Yes (detox changes daily) Medical Record Reviewed: Yes Mental Status Examination - Cognitive Function Orientation: Person, Place, Situation, Time Memory: Intact Attention: WNL Concentration: Poor Association: WNL Fund of Knowledge: WNL - Mood Mood: Depressed, Anxious - Affect Affect: Constricted - Speech Speech: Appropriate - Formal Thought Process Formal Thought Process: No Impairment - Suicidal Ideation Suicidal Ideation: No - Homicidal Ideation Homicidal Ideation: No Goal/Treatment Plan - Goal/Treatment Plan Need for Continued Stay: Discharge may exacerbated symptoms, Severe functional impairment Progress Toward Problem(s) and Goals/Treatment Plan: Taper with Ativan Continue Methadone regimen Gabapentin for augmentation if needed As needed medications All risks, benefits and alternatives of the meds discussed, and the pt agreed and understood. Attend groups and activities Supportive therapy and psychoeducation MA for abstinence CBT for relapse prevention Encourage MAT Refer to rehab or IOP, and self-help groups Teach healthy lifestyle methods, i.e. diet, exercise, meditation Smoking cessation with MA Nicotine patch if needed Estimated Date of D/C: 11/12/18
--- NOTE | 2018-11-12 08:54 | PCM.PYCHDC ---
Mental Status Examination - Mental Status Examination Orientation: Person Discharge Summary - Discharge Note Consultations:: List each consultation separately and include: 1. Reason for request. 2. Findings. 3. Follow-up Summary of Hospital Course include:: 1. Description of specific treatment plan utilized for patients during their course of treatmen. 2. Summarize the time- course for resolution of acute symptoms and/or regressed behaviors. 3. Describe issues identified and worked on during hospitalization. 4. Describe medication utilized. 5. Describe medical problems identified and treated. 6. Reassessment of suicide risk Summary of Hospital Course: Patient is a 53 -year-old, male who is single, unemployed, and living with his mother in [place], [place]. He has 4 children, ages 25, 22, 16, and 8. His 16 and 8 year old kids are under supervision of their mother. He presents for alcohol detox. Patient reports drinking 1 pint of anything, daily. He started drinking when he was 23 years old. With his longest sobriety lasting 18 years that he attributes to being in a strong relationship. Patient does not have a history of DTs or seizures but states that he has a history of 2-3 blackouts in his life. He states that after stopping heroin his alcohol intake increased. Patient is currently on 90 mg of methadone after detox for heroin at [facility] [place] 5 months ago. He states that he gets his methadone from [facility] in [place], [place]. He states that he used to use 6 bags of heroin, intranasally and intravascularly, daily. He first started using heroin when he was 50 years old. Patient does not have a history of heroin overdoses. Patient also reports taking 2 of the 2 mg pills of Xanax, 2-3 times a week. He states that he has been taking pills for a long time. This is his 3rd time in detox. He has been to [facility] in the past and [facility] as well. Patient denies any suicidal or homicidal ideation, hallucinations, and paranoia. Past Psychiatric History: Bipolar, depression, anxiety. No hospitalizations in the past. Family Psych History: none PMHx: Hep. C (does not taking medication for it, in the process of getting it approved by the insurance) Meds: Patient does not remember the name of his psych meds but states that he is compliant with them He will go to [facility] - Diagnosis (1) Alcohol use disorder, severe, dependence Current Visit: Yes Status: Acute - Final Diagnosis (DSM 5) Condition upon Discharge: GOOD Disposition: HOME/ ROUTINE Follow-up Treatment Plan: Taper with Ativan Continue Methadone regimen Gabapentin for augmentation if needed As needed medications All risks, benefits and alternatives of the meds discussed, and the pt agreed and understood. Attend groups and activities Supportive therapy and psychoeducation MT for abstinence CBT for relapse prevention Encourage MAT Refer to rehab or IOP, and self-help groups Teach healthy lifestyle methods, i.e. diet, exercise, meditation Smoking cessation with MT Nicotine patch if needed Prescriptions/Medication Reconciliation: Aspirin [Aspirin Chewable] 81 mg PO DAILY #30 chew Clopidogrel [Plavix] 75 mg PO DAILY #30 tab Escitalopram [Lexapro] 10 mg PO DAILY #30 tab hydroCHLOROthiazide [Hydrodiuril] 25 mg PO DAILY #30 tab Mirtazapine [Remeron] 15 mg PO HS #30 tab Rosuvastatin Calcium [Crestor] 10 mg PO HS #30 tab traZODone [Desyrel] 50 mg PO HS #30 tab
[2018-11-12] MEDS: Methadone 40 mg Tab PO SCH (09:24)
[2018-11-12] MEDS: Multiple Vitamins Tab PO SCH (09:24)
[2018-11-12 11:21] VITALS: BP 125/73; PULSE 76; TEMP 97.4; O2SAT 99
== END 2018-11-12 11:10 | disposition designated cancer center or children's hospital (05) | DRG 745 ==
LOC: C.ER 19:11 → C.7D 11-08 04:00
PROC: HZ2ZZZZ Detoxification Services for Substance Abuse Treatment (ICD-10-PCS; principal; 2018-11-08)
PROC: HZ52ZZZ Individual Psychotherapy for Substance Abuse Treatment, Cognitive-Behavioral (ICD-10-PCS; 2018-11-08)
PROC: HZ59ZZZ Individual Psychotherapy for Substance Abuse Treatment, Supportive (ICD-10-PCS; 2018-11-08)
PROC: HZ56ZZZ Individual Psychotherapy for Substance Abuse Treatment, Psychoeducation (ICD-10-PCS; 2018-11-08)
PROC: HZ42ZZZ Group Counseling for Substance Abuse Treatment, Cognitive-Behavioral (ICD-10-PCS; 2018-11-08)
PROC: HZ46ZZZ Group Counseling for Substance Abuse Treatment, Psychoeducation (ICD-10-PCS; 2018-11-08)
PROC: GZHZZZZ Group Psychotherapy (ICD-10-PCS; 2018-11-08)
PROC: GZ58ZZZ Individual Psychotherapy, Cognitive-Behavioral (ICD-10-PCS; 2018-11-08)
PROC: GZ56ZZZ Individual Psychotherapy, Supportive (ICD-10-PCS; 2018-11-08)
DX: F10.230 Alcohol dependence with withdrawal, uncomplicated (principal); F11.20 Opioid dependence, uncomplicated; F10.220 Alcohol dependence with intoxication, uncomplicated; F31.9 Bipolar disorder, unspecified; Y90.1 Blood alcohol level of 20-39 mg/100 ml; F13.20 Sedative, hypnotic or anxiolytic dependence, uncomplicated; F41.1 Generalized anxiety disorder; Z87.891 Personal history of nicotine dependence; Z86.73 Personal history of transient ischemic attack (TIA), and cerebral infarction without residual deficits; I10 Essential (primary) hypertension